=== PATIENT | female | born 1980 ===

== ENCOUNTER 2019-03-06 12:15 | Emergency (ER) | payer OTHER ==
[~2019-03-06] VITALS: Ht 165.1 cm; Wt 58.1 kg
[2019-03-06] MEDS ORDERED: OSEL75CA PO (17:49)
[2019-03-06] MEDS ORDERED: DOLOGEN CAPLET1 EACH PO (17:49)
== END 2019-03-06 18:03 | disposition home or self-care (01) ==
LOC: ER 12:15
DX: B34.9 Viral infection, unspecified (principal)